=== PATIENT | female | born 1990 | race Caucasian/White ===

== ENCOUNTER 2018-10-12 12:33 | Emergency (ER) | payer MEDICAID ==
[~2018-10-12] VITALS: Ht 157.5 cm; Wt 61.0 kg
[2018-10-12] MEDS ORDERED: SODIUM CHLORIDE 0.9% 1,000 ML IV ONE (15:47)
[2018-10-12] MEDS ORDERED: ACETAMINOPHEN 325MG TABLET PO STA (15:47)
[2018-10-12] MEDS ORDERED: MECLIZINE 25MG TABLET PO ONE (16:00)
[2018-10-12] MEDS ORDERED: ONDANSETRON 4MG ODT PO ONE (16:00)
[2018-10-12 16:03] LABS: BASOPHILS % 0.2 % (0.0-2.0); EOSINOPHILS % 0.2 % (0.0-5.0); HEMATOCRIT. 41.4 % (36.0-48.0); HEMOGLOBIN. 14.2 g/dL (12.0-16.0); LYMPHOCYTES % 13.5 % (20.0-50.0); MEAN CORPUSCULAR HEMOGLOBIN 30.6 pg (28.0-32.0); MEAN CORPUSCULAR VOLUME 89.3 fL (81.0-99.0); MONOCYTES % 3.5 % (2.0-8.0); NEUTROPHILS % 82.6 % (40.0-76.0); PLATELET 251 x1000/uL (130-400); RED BLOOD CELL COUNT 4.64 mill/uL (4.2-5.4); RED CELL DISTRIBUTION WIDTH 13.5 % (11.6-14.6)
[2018-10-12 16:07] LABS: CLARITY URINE TURBID (CLEAR); COLOR URINE ORANGE (YELLOW); KETONES URINE TRACE (NEGATIVE); LEUKOCYTE ESTERASE URINE NEGATIVE (NEGATIVE); NITRITE URINE NEGATIVE (NEGATIVE); OCCULT BLOOD URINE 3+ (NEGATIVE); PH URINE >=9.0 (4.5-8.0); PROTEIN URINE 1+ (NEGATIVE); SPECIFIC GRAVITY URINE 1.017 (1.005-1.030); UROBILINOGEN URINE 0.2 E.U./dL (0.2-1.0)
[2018-10-12 16:09] LABS: CHLORIDE 104 mEq/L (98-107)
[2018-10-12 18:59] VITALS: BP 101/68
== END 2018-10-12 19:06 | disposition home or self-care (01) ==
LOC: ER 12:33
DX: H81.392 Other peripheral vertigo, left ear (principal); H66.92 Otitis media, unspecified, left ear
CPT/HCPCS: 36415; 80053; 81003; 81025; 85025; 96360; 99284; J7030; J8597; Q0162; Z7610